=== PATIENT | female | born 1990 ===

== ENCOUNTER 2021-12-05 21:17 | Emergency (ER) | payer SELFPAY ==
[2021-12-05 21:35] VITALS: BP 108/75
== END 2021-12-06 04:00 | disposition left against medical advice (07) ==
LOC: ED 21:17
DX: S69.91XA Unspecified injury of right wrist, hand and finger(s), initial encounter (principal); Z53.21 Procedure and treatment not carried out due to patient leaving prior to being seen by health care provider; X58.XXXA Exposure to other specified factors, initial encounter; Y93.89 Activity, other specified; Y92.89 Other specified places as the place of occurrence of the external cause; Y99.8 Other external cause status